=== PATIENT | male | born 1990 | race Caucasian/White ===

== ENCOUNTER → 2022-02-14 | Outpatient (CLI) | payer BC ==
--- NOTE | 2022-02-14 16:11 | P.SLEEP ---
History of Present Illness H&P Date: 02/14/22 Chief Complaint: Insomnia This is a pleasant 31-year-old male patient who is coming to the for issues related to insomnia. The patient reports difficulties in maintaining sleep. He denies having any issues with falling sleep. His been having this from for the past 3 years. Prior to that, he had a normal sleep when he was able to sleep with at 7 hours. For now, the patient is going to bed at around 11:30 PM. At around 4 or 5 AM, the patient wakes up and he is unable to go back to sleep. As such, he stays awake and he ultimately goes back to bed at around 7 AM and he sleeps still 10 AM in the morning. 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 He has no excessive fatigue or sleepiness during the day special he sleeps adequately in the morning. No snoring. No grinding of the teaspoon notices his lower extremities. No sleepwalking. No sleep talking. No anxiety or panic attacks. No depression. No PTSD. No substance abuse or heartburn. No issues with chronic pain. The patient has maintained his body weight. No sleep paralysis. No hallucinations. No cataplexy. No anxiety. No depression. No nightmares. No other complaints otherwise for now. He is . He has a bed partner. Review of Systems Constitutional: Denies chills, Denies fever Eyes: denies as per HPI, denies blurred vision, denies bulging eye, denies decreased vision, denies diplopia, denies discharge, denies dry eye, denies irritation, denies itching, denies pain, denies photophobia, denies loss of peripheral vision, denies loss of vision, denies tunnel vision/blind spots Ears: deny: decreased hearing, ear discharge, earache, tinnitus Ears, nose, mouth and throat: Reports as per HPI Breasts: absent: as per HPI, gynecomastia Cardiovascular: Reports as per HPI Respiratory: Reports as per HPI Gastrointestinal: Reports as per HPI Genitourinary: Reports as per HPI Musculoskeletal: Reports as per HPI Musculoskeletal: absent: ankle pain, ankle stiffness, ankle swelling Integumentary: Reports as per HPI Neurological: Reports as per HPI Psychiatric: Reports sleep disturbances Endocrine: Reports as per HPI Hematologic/Lymphatic: Reports as per HPI Allergic/Immunologic: Reports as per HPI Physical Exam BP is 120/76 with a pulse of 80 and respirations 16 and a temperature of 98.9. Oxygen saturation 96%. Height is 5 feet 9 inches, weight is 188 pounds and 14.5 inches. The patient appeared well nourished and normally developed. Vital signs as documented. Head exam is unremarkable. No scleral icterus or corneal arcus noted. Neck is without jugular venous distension, thyromegaly, or carotid bruits. Carotid upstrokes are brisk bilaterally. Lungs are clear to auscultation and percussion. Cardiac exam reveals the PMI to be normally sized and situated. Rhythm is regular. First and second heart sounds normal. No murmurs, rubs or gallops. Abdominal exam reveals normal bowel sounds, no masses, no organomegaly and no aortic enlargement. Extremities are nonedematous and both femoral and pedal pulses are normal.Examination of the skin revealed no evidence of significant rashes, suspicious appearing nevi or other concerning lesions.Neurologically, the patient is awake and alert and the patient does not have any focal neurological deficit. Cranial nerves are essentially intact. Assessment and Plan Plan: Sleep disturbance. The patient reports difficulty with sleep maintenance. No issues with sleep induction. This is a condition related to sleep scheduling as the patient is unable to consolidate his sleep hours at night and he is taking longer naps between 7 AM and 10 AM. This is not a condition related to insomnia. It warrants no further sleep investigation in terms of sleep studies. It warrants no use of hypnotics. The patient is to work on his sleep schedule and timing and he was instructed to do so. Note that the patient does not have any major comorbid conditions. He is essentially healthy. Doesn't take any medication. Plan Educated on consolidating his sleep hours mainly in the evening. We'll keep the time to go to bed around 10:30 PM. The patient will be asked to leave bed at around 5 AM in the morning and not take any naps. By doing sleep restriction, should be able to consolidate his sleep hours mainly in the evening and this will be further facilitated by not take any naps during the day. The goal will be to gradually extend the number of hours of sleep by inducing some initial sleep restriction and eliminating naps and implementing stainless control. The patient sleep hygiene measures are in general good. Maintain regular sleep schedule for now. No need for sleep studies. No need for any hypnotic agents. The patient understood the process of regulating back his sleep schedule. He is going to implement this. Keeping a sleep diary will be useful. He will contact me back if he is unable to do so and/or his intervention is unsuccessful. Sleep Note - Sleep Note Sleep Note: Temperature: Pulse Rate: Respiratory Rate: Blood Pressure: SpO2: Height: Weight: BMI: Neck Circumference:
== END | disposition home or self-care (01) ==
LOC: SLEEP 15:15
PROVIDERS: ATTEND Internal Medicine Critical Care Medicine
DX: G47.33 Obstructive sleep apnea (adult) (pediatric) (principal)
CPT/HCPCS: 99202